=== PATIENT | female | born 1945 | race Caucasian/White ===

== ENCOUNTER → 2021-08-13 12:07 | Outpatient (CLI) | payer OTHER, SELFPAY ==
[2021-08-13 13:34] LABS: COVID19 -Nasal RAPID Negative (Negative)
== END ==
PROVIDERS: Visit Provider Family Medicine Sleep Medicine
DX: Z20.822 Contact with and (suspected) exposure to COVID-19 (principal)
CPT/HCPCS: 87635; C9803

== ENCOUNTER 2021-08-16 10:22 | Day surgery (SDC) | payer OTHER, SELFPAY ==
[2021-08-10 08:23] VITALS: BMI 27.3
[2021-08-16] VITALS (12 sets, daily range): BP systolic 141–180; BP diastolic 67–85; PULSE 72–89; RESP 8–16; TEMP 36.3–36.9; O2SAT 91–98; BMI 27.3
--- NOTE | 2021-08-16 | PATH_ITS ---
[facility] Accession Number: [id number] No. of containers..01 Tissue . 01 Material submitted: . sinus, maxillary - LEFT MAXILLARY SINUS . 02 Diagnosis: Left Maxillary Sinus, Left Endoscopic Maxillary Antrostomy with Left Total Ethmoidectomy: Inflamed portions of sinonasal tissue, some with associated bone and fibrosis, consistent with chronic active sinusitis. No significant increase in eosinophils is identified. Negative for malignancy. MRV 08/21/2021 1641 Local . 02 Electronically signed: . Shaista Villanueva MD, Pathologist NPI- [id number] . 01 Gross description: . LEFT MAXILLARY SINUS: Received in formalin are multiple fragment of blanton soft tissue measuring 0.6 x 0.6 x 0.3 cm in aggregate. Tissue is inked. Specimen is submitted in its entirety in 1 cassette. /ERYN 08/17/2021 1851 Local . 02 Pathologist provided ICD-10: J32.4, J34.89, R09.82 . 02 CPT . 071167 Specimen Comment: A courtesy copy of this report has been sent to [facility] Performed at: 01 [facility] [address], [place], [place] [id number] MD To Crespo MD Phone: [phone] Performed at: [address] [facility] [address] [place], [place] [id number] MD Abeba Brady MD Phone: [phone]
--- NOTE | 2021-08-16 10:36 | PM.PREOP ---
Pre-operative Note COVID-19 COVID-19 status: Negative Result date/Date tested (Pos, Neg/Pending): 08/13/21 Interval Note History & Physical reviewed/Exam performed by Physician: Yes Changes to H&P: No
--- NOTE | 2021-08-16 10:37 | P.OP_ITS ---
Operative Date/Time/Diagnoses Date of procedure: 08/16/21 Time of procedure: 14:30 Pre-op diagnosis: Left chronic maxillary and ethmoid sinusitis, nasal airway obstruction, postnasal drip Post-op diagnosis: same Procedure & Clinicians Procedure: Left endoscopic maxillary antrostomy with tissue removal, left endoscopic total ethmoidectomy Same procedure as scheduled: Yes Indications: 76-year-old female with the above diagnoses incompletely managed with medical therapy presents for the above procedures. Following discussion of the material risks benefits complications and alternatives, she elected to proceed. Medical clearance dated 06/20/2021 was reviewed with echocardiogram showing aortic sclerosis only. Surgeon: Pepito Yadav Click Yes if Unassisted: Yes Anesthesia Type: General Operative Notes Findings: Purulence filling inflamed left maxillary sinus as well as anterior ethmoids, inflamed and irregular tissue sampled in multiple locations including from the edges of the antrostomy and from the anterior ethmoids. Uncinate process irregular with distorted anatomy, ethmoid bulla likely previously obliterated. Cultures taken in addition. Thick bone of the anterior ethmoids, frontal recess approached but not directly surgically opened although frontal recess was likely cannulated. Small pumping arterial vessel cauterized near the posterior inferior rim of the large maxillary antrostomy. Estimated Blood Loss (mL): 150 Procedure in detail: Following identification and confirmation of consent, the patient was brought to the operating room suite and placed in the supine position. General endotracheal anesthesia was administered. She had received preoperative Afrin nasal spray. Following sterile prep and drape, under endoscopic guidance I infiltrated the posterior and anterior superior insertion of the left middle turbinate. 1/2 inch sq cottonoids with 1-1000 epinephrine were placed for s everal minutes within the left middle meatus and removed, used intermittently for oozing throughout the case. The middle turbinate was partially resected with through-cutting forceps to increase patency of the middle meatus with the posterior stump eventually cauterized with suction electrocautery on a setting of 15. Backbiting forceps performed uncinectomy with the distorted residual uncinate process along with the microdebrider. With blunt and sharp dissection I entered the maxillary sinus and large Maxillary antrostomy was created by extending the natural os posteriorly and inferiorly. Abnormal mucosa was resected from within the maxillary sinus with curved forceps and the rad 60 microdebrider. The residual distorted ethmoid bulla was resected with the microdebrider. I penetrated the basal lamella inferiorly and medially to enter the posterior ethmoids and the superior turbinate was identified but not manipulated. Posterior to anterior ethmoid dissection was performed along the skull base, lateral to the middle turbinate and medial to the lamina papyracea, with the J curette and forceps. The frontal recess was not directly approached due to thick, firm bone in that area although some polyps were resected in the area of the frontal recess. Hemostasis with 1: 1000 epinephrine on cotton was performed, scattered focal suction electrocautery. Sponge counts were correct and she was extubated in the operating room and taken to recovery room in stable condition without complication. Complications: none Post-operative Condition: stable Disposition: same day surgery Plan for aftercare: Nasal saline every hour while awake, begin irrigations t.i.d. tomorrow. Tylenol alternating with Advil for pain control, oxycodone for breakthrough pain. Elevate head of bed, no nose blowing, no straining for 2 weeks. Follow- up in 1 week.
--- NOTE | 2021-08-16 10:45 | PM.HP.1 ---
History of Present Illness History of Present Illness Date Patient Seen: 08/16/21 Time Patient Seen: 10:46 Chief complaint: SINUS SURGERY W/LEFT TOTAL ETHMOIDECTOMY Narrative: 76-year-old female last seen in clinic 03/22/2021 presents for left maxillary antrostomy with tissue removal, left total ethmoidectomy due to failure of medical therapy for her chronic rhinosinusitis. Most recent CT 03/06/2021 showed persistent disease. Some persistent nasal obstruction postnasal drip and fatigue. She received medical clearance dated 06/20/2021 including an echocardiogram showing aortic sclerosis only. No recent cough, cold, or fever. Patient History Medical History Post-nasal drip Rhinosinusitis Sinusitis Family & Social History Tobacco & Substance use: Smoking Status Never smoker Substance Use Type does not use Meds Home Medications and Allergies Home Medications Medication Instructions Recorded Confirmed Type esomeprazole magnesium 20 mg 20 mg PO DAILY 08/10/21 08/10/21 History capsule,delayed release (Nexium) loratadine 10 mg tablet 10 mg PO DAILY 08/10/21 08/10/21 History Allergies Allergy/AdvReac Type Severity Reaction Status Date / Time No Known Drug Allergies Allergy Verified 08/10/21 08:39 Review of Systems Review of Systems Narrative: Negative except as listed in the HPI Exam Narrative Exam Narrative: Well-developed well-nourished female in no acute distress. Heart regular rate and rhythm without murmur, lungs clear to auscultation bilaterally Assessment & Plan Assessment & Plan narrative: Assessment: Left maxillary and ethmoid chronic rhinosinusitis, nasal obstruction, postnasal drip, fatigue Plan: Following discussion of the material risks benefits complications and alternatives, the patient elected to proceed with left endoscopic sinus surgery. Time Spent With Patient Critical Care time: I spent a total of [] minutes of critical care time on this patient's care today; this time is exclusive of procedural time.
[2021-08-16] MEDS: LACTATED RINGERS 1,000 ML 84 ML IV ×2 (11:06→14:17)
[2021-08-16] MEDS: OXYMETAZOLINE NASAL SPRAY 15 ML 2 SPRAYS NASAL (11:09)
[2021-08-16] MEDS: ACETAMINOPHEN 325 MG TABLET 975 MG PO (11:52)
--- NOTE | 2021-08-16 13:25 | SUR.OPER ---
Supine on padded OR bed, head on pillow, arms padded and tucked at sides, legs uncrossed, safety belt at thigh, tape over blanket over lower legs .
[2021-08-16] MEDS: EPINEPHrine 1 MG/ML 6 MG TOP (13:32)
--- NOTE | 2021-08-16 13:40 | SUR.OPER ---
BILATERAL HEARING AIDS IN LABELED CUP TO PACU WITH PATIENT
[2021-08-16] MEDS: fentaNYL 100 MCG/2 ML INJ IV (15:06)
[2021-08-16] MEDS: OXYCODONE IR 5 MG TABLET PO (15:34)
--- NOTE | 2021-08-16 17:23 | SUR.PHASEII ---
All nursing care done and charted by Arleth MARQUES supervised by Clarence HULL
== END 2021-08-16 16:45 | disposition home or self-care (01) ==
PROVIDERS: PCP Internal Medicine; Referring Provider Otolaryngology; Visit Provider Otolaryngology
PROC: (CPT 31231; principal; 2021-08-16 12:00)
DX: J32.0 Chronic maxillary sinusitis (principal); J32.2 Chronic ethmoidal sinusitis; J98.8 Other specified respiratory disorders
CPT/HCPCS: 31255; 31267; 87070; 87075; 87077; 87147; 87186; 87205; A9270; J0171; J1100; J1170; J2250; J2405; J2704; J3010

== ENCOUNTER 2023-08-11 07:42 | Day surgery (SDC) | payer OTHER, SELFPAY ==
[2023-08-08 09:02] VITALS: BMI 26.7
[2023-08-11] VITALS (11 sets, daily range): BP systolic 108–155; BP diastolic 54–81; PULSE 59–89; RESP 12–18; TEMP 35.7–37.4; O2SAT 89–98; BMI 26.7
--- NOTE | 2023-08-11 | PATH_ITS ---
[facility] Accession Number: [id number] No. of containers..01 Tissue . 01 Material submitted: . uterus - UTERUS, FALLOPIAN TUBES AND OVARIES . 01 Diagnosis: Uterus, Fallopian Tubes and Ovaries, Laparoscopic Vaginal Hysterectomy with Bilateral Salpingo-oophorectomies (Weight 36 grams): Cervix with patchy parakeratosis and reactive squamous features. Endocervix with no significant histomorphologic abnormality. Endometrium with a benign polyp (23 mm in greatest dimension) with features of cystic atrophy; negative for glandular hyperplasia, cytologic atypia, or malignancy. Myometrium with a benign leiomyoma (9 mm in greatest dimension) and with focal involvement by adenomyosis. Uterine serosa with no significant histomorphologic abnormality. Left fallopian tube, complete cross sections; negative for significant atypia. Left ovary with scattered benign inclusion cysts; negative for significant atypia. Right fallopian tube, complete cross sections; negative for significant atypia. Right ovary with rare, benign inclusion cysts; negative for significant atypia. [facility] 08/15/2023 1542 Local . 01 Comment: As part of routine quality assurance qa lab technician, this case was also reviewed by Dr. Shannon Ramires, who agrees with the interpretation. . 01 Electronically signed: . Shaista Villanueva MD, Pathologist NPI- [id number] . 01 Gross description: . The specimen is received in formalin labeled with the patient's name, , and uterus, fallopian tubes, and ovaries, consists of an intact uterus (36 grams, 6.6 cm from superior to inferior, 4.8 cm from medial to lateral, and 2.5 cm anterior to posterior), attached cervix (3.3 x 2.6 cm), left fallopian tube (6.5 x 0.3 cm), left ovary (2 grams, 2.1 x 0.9 x 0.5 cm), right fallopian tube (4.3 x 0.3 cm), and right ovary (less than 1 gram, 2.0 x 0.8 x 0.4 cm). . The ectocervix is blanton and irregular with a circular os measuring 0.3 cm in diameter. The anterior paracervical margin is inked blue while the posterior paracervical margin is inked black. The serosa is violaceous and smooth with no hemorrhage or adhesion identified. The endocervical canal has blanton cano bone mucosa measuring 1.7 cm in length. The endometrial cavity measures 1.7 cm from cornu to cornu and 4.0 cm in length, with a brown polypoid structure occupying a majority of the endometrial cavity measuring 2.3 x 1.7 x 0.8 cm. The endometrium is blanton, denuded, and averages less than 0.1 cm thick. The polypoid structure has a red to blanton, cystic cut surface with attachment but no grossly visible invasion into the wall. The myometrium is blanton to brown and trabecular, measuring up to 0.9 cm in maximum thickness with a well-circumscribed white whorled nodule located subserosally, measuring 0.9 cm in greatest dimension with no hemorrhage or necrosis identified. . The left fallopian tube has blanton, smooth serosa with no cystic structures identified, and sectioning reveals an unremarkable stellate lumen. The left ovary has a blanton cerebriform surface with a soft brown nodule measuring 0.3 x 0.3 x 0.2 cm. Sectioning reveals an unremarkable cut surface with no lesions identified. . The right fallopian tube has blanton, smooth serosa with a cystic structure measuring 0.5 cm in greatest dimension filled with clear serous fluid. Sectioning reveals an unremarkable stellate lumen. The right fallopian tube has a blanton, cerebriform external surface, and sectioning reveals an unremarkable cut surface with no lesions identified. . Staffing Clerk sections are submitted as follows: A1: Anterior and posterior cervix. A2: Anterior full thickness section. A3-A6: Posterior full thickness sections with entire cystic lesion. A7: White whorled nodule. A8: Left fallopian tube to include one-half of bisected fimbriae and cross sections. A9: Left ovary. A10: Right fallopian tube to include one-half of bisected fimbriae and cross sections. A11: Right ovary. ([id number]) /MRV 08/13/2023 1213 Local . 01 Pathologist provided ICD-10: N81.4, N81.10, N81.6 . 01 CPT . 698393 Specimen Comment: A courtesy copy of this report has been sent to [phone] Performed at: 01 [facility] [address] [place] [address], [place], [place] [id number] MD To Crespo MD Phone: [phone]
[2023-08-11] MEDS: LACTATED RINGERS 1,000 ML 100 ML IV (08:40)
--- NOTE | 2023-08-11 09:43 | P.HPOB_ITS ---
History of Present Illness History of Present Illness Reason for admission: pelvic prolapse Narrative: Zee Gonzalez is a 78 year old female 2 para 1 who presents for an LAVH/BSO/anterior and posterior repair/possible sacral spinous ligament fixation These procedures are being done due to uterine prolapse, cystocele, and rectocele [facility] Medical History (Updated 08/08/23 @ 09:01 by Edna Morales RN) Neuropathy Arthritis Post-nasal drip Sinusitis Rhinosinusitis Surgical History (Updated 08/08/23 @ 09:02 by Edna Morales RN) Hx of shoulder surgery (2001) History of back surgery (2020) History of ethmoidectomy (08/16/21) Social History household members: spouse and none Smoking Status: Never smoker alcohol intake: former Meds Home Medications and Allergies Home Medications Medication Instructions Recorded Confirmed Type No Known Home Medications 08/11/23 08/11/23 History Allergies Allergy/AdvReac Type Severity Reaction Status Date / Time No Known Drug Allergies Allergy Verified 08/11/23 08:24 Exam Vital Signs (past 8 hours): - 08/11/23 08:27 Temperature 97.9 F Pulse Rate 77 Respiratory Rate 16 Blood Pressure 155/81 H Pulse Oximetry 97 Oxygen Delivery Method Room Air Oxygen Delivery Method Room Air Narrative Exam Narrative: HEENT: No thyromegaly, no anterior cervical or supraclavicular lymphadenopathy. Lungs:Clear to auscultation bilaterally, no wheezes. Cardiovascular: Regular rate and rhythm, no murmurs, rubs, or gallops. Abdomen: No scars. No hepatosplenomegaly. No masses palpable. External genitalia: Atrophic Vagina: Pessary in place. Third-degree uterine prolapse, second to third- degree cystocele, second to third-degree rectocele. Cervix: Prolapsed Bimanual exam: 6 Week size prolapsed uterus. Mobile. No adnexal masses or tenderness. Rectal: Second to third-degree rectocele. Extremities: No edema Assessment & Plan Assessment & Plan narrative: Assessment: 78-year-old 2 para 1 with uterine prolapse, cystocele, and rectocele Plan: LAVH/BSO/anterior-posterior repair/possible sacral spinous ligament fixation The risks, benefits, and alternatives to the procedure were explained to the patient. The risks including bleeding, infection, injury to the bowel, bladder, ureters, urethra, or rectum. She understands all of these risks and agrees to proceed. A full par Q was held and consent form was signed. Time Spent With Patient Time with patient: less than 30 minutes
--- NOTE | 2023-08-11 09:50 | PM.PREOP ---
Pre-operative Note Interval Note History & Physical reviewed/Exam performed by Physician: Yes Changes to H&P: No H&P completed within 30 days and has changed as indicated here:: 08/11/23
[2023-08-11] MEDS: CEFAZOLIN 2 GM/100 ML PREMIX 100 ML IV (10:20)
--- NOTE | 2023-08-11 10:46 | SUR.OPER ---
Lithotomy on padded OR bed. Carpio Pad Positioner under torso. Head on pillow, arms padded and tucked at sides. Legs secured in padded yellow fins stirrups.
[2023-08-11] MEDS: BUPIVACAINE 0.25% (PF) 60 ML, EPINEPHrine 0.3 MG INJ (10:52)
--- NOTE | 2023-08-11 12:31 | SUR.OPER ---
Final count performed with Arcadio Drake CST. Unable to enter into [place].
--- NOTE | 2023-08-11 12:48 | SUR.OPER ---
Addendum entered by Ml Leonard R.N. 08/11/23 12:48: Vag packing placed in vagina *BY* Dr. Wylie Original Note: vag packing placed in vagina per Dr. Wylie.
[2023-08-11] MEDS: ONDANSETRON 4 MG/2 ML INJ IV ×2 (13:27→20:36)
--- NOTE | 2023-08-11 13:45 | PC.NURSE ---
Addendum entered by Alejandra Ibarra R.N. 08/11/23 18:30: Patient has about 100cc in her gay catheter. She states that she feels bloated and achy. Will give patient some tylenol. Just left a text with Dr. Wylie to let her know about the urine amount. To see if she wants to do any different orders. Addendum entered by Alejandra Ibarra R.N. 08/11/23 15:40: Patients gay with yellow urine. Patient has some anxiety, she is affraid that if she goes to sleep she will stop breathing or her heart will stop pumping. Encouraged patient to try and get some rest and that we are taking good care of her, she is easily calmed with reassurance. Original Note: Assess- Patient is groggy from anesthesia and slightly confused. She has 3 small allevyn dressings to her lower abdomen that are all cdi with some packing present with betadine and a gay catheter present. Given zofran for nausea and helpful. Patient has NS at 75cc/hr infusing. The urine in her gay bag is clear and patient is lying supine with her SCDs on.
[2023-08-11] MEDS: LACTATED RINGERS 1,000 ML 75 ML IV (14:30)
--- NOTE | 2023-08-11 17:53 | P.OP_ITS ---
Operative Date/Time/Diagnoses Date of procedure: 08/11/23 Time of procedure: 12:30 Pre-op diagnosis: Third-degree uterine prolapse, third-degree cystocele, second- degree rectocele Post-op diagnosis: same Procedure & Clinicians Procedure: Procedures Operation Date: 08/11/23 09:45 Actual Procedure Side Surgeon p Laparoscopic Assisted Vaginal Hysterectomy, bilateral salpingectomy with oophorectomy Rhina Wylie MD s Anterior Repair, sacrospinous ligament fixation Rhina Wylie MD Indications: 78-year-old 2 para 1 with symptomatic uterine prolapse, cystocele, and rectocele. Patient had used a pessary and this had failed. Surgeon: Rhina Wylie Supervisor Rice Milling: Deborah Collins Anesthesia Type: General and Local Operative Notes Findings: 5 week size prolapsed uterus Normal tubes and ovaries Normal liver and gallbladder Normal appendix Third-degree cystocele Second-degree rectocele Second-degree vaginal vault prolapse Closure Type: primary Specimen(s): left tube & ovary, right tube & ovary and uterus Applied: catheter and other (Betadine moistened vaginal packing) Estimated blood loss (mL): 100 Blood products transfused: none Procedure in detail: The patient was taken to the operating room where she was placed in the dorsal supine position. After adequate general endotracheal anesthesia was achieved, she was placed in the dorsal lithotomy position, and prepped and draped in the usual sterile fashion. A bivalve speculum was placed into the vagina, and a single-tooth tenaculum was placed on the anterior lip of the cervix. The cervical os was sequentially dilated until the ZUMI uterine manipulator could pass easily into the endometrial cavity. The single-tooth tenaculum was removed from the anterior lip of the cervix, and the bivalve speculum was removed from the vagina. Attention was then turned to the abdomen where 6 mL of quarter percent Marcaine with epinephrine were injected in the umbilical fold. A 5 mm incision was made. The Verees needle was placed into the peritoneal cavity, and its placement confirmed by aspiration and drop test. The abdominal cavity was insufflated with 3.4 L of CO2. The Veress needle was removed, and a 5 mm trocar was placed without difficulty. Initial inspection of the pelvis revealed the findings noted above. 2 other incisions were made 4 cm lateral to the midline at the level of the umbilicus. These were 5 mm incisions. Two 5 mm trocars were placed under direct visualization. The balloon on the trocar was inflated with 5 cc of air. The right tube and ovary were grasped with an atraumatic g rasper. The infundibulopelvic ligament on the right side was cauterized and cut with plasma kinetic. The round ligament and broad ligament were cauterized and cut. This was continued to the level of the uterine arteries. This was repeated on the patient's left side. The instruments were removed from the abdomen. Attention was then turned to the vagina where the ZUMI uterine manipulator was removed from the uterus. The cervix was grasped with a 4 tooth tenaculum. 10 mL of quarter percent Marcaine with epinephrine were injected circumferentially around the cervix. The cervix was circumscribed. The bladder and rectum were dissected off the lower uterine segment and cervix with an open moistened Ray-Jayjay. The peritoneum was entered sharply with the Metzenbaum scissors anteriorly and a Kiran placed. The peritoneum was entered posteriorly with the Metzenbaum scissors and the long weighted speculum was placed into the posterior cul-de-sac. The uterosacral cardinal ligament complexes were clamped, transected, and suture ligated with 0 Vicryl. These were attached to hemostat. The uterine arteries were clamped, transected, and suture ligated with 0 Vicryl. The uterus was handed off for specimen with the tubes and ovaries. The vaginal cuff was closed with 0 Vicryl with a series of simple interrupted sutures. The tagged sutures were cut. 2 Allis clamps were placed at the apex of the cystocele. 6 mL of quarter percent Marcaine with epinephrine were injected and an incision was made with a #10 blade between the 2 Allis clamps. Wide Allis clamps were placed on the midline of the cystocele approximately 7. The mucosa was undermined using the Metzenbaum scissors and the mucosa incised in the midline moving the wide Allis clamps to the edges of the mucosa. The muc amanda was dissected off the underlying fascia using an open moistened Ray-Jayjay and a #10 blade. The fascia was reapproximated with 0 Vicryl with a series of horizontal mattress sutures. The excess vaginal mucosa was excised. The mucosa was closed using simple interrupted sutures with 2-0 Vicryl including the underlying fascia to close the space. The weighted speculum was removed from the vagina. Allis clamps were placed approximately 4 cm apart just to the left of midline towards the posterior rectocele. 6 mL of quarter percent Marcaine with epinephrine were injected. An incision was made with a #10 blade between the 2 Allis clamps The mucosa was undermined using the Metzenbaum scissors and the mucosa incised in the midline, moving the wide Allis clamps to the mucosal edges. The space around the sacral spinous ligament on the right side was dissected out bluntly. Using the Capio needle with 0 PDS, a stitch was placed approximately 2 cm from the ischial spine. Tugging on the sutures showed good purchase. The other end of the PDS suture was placed on the vaginal cuff with care to avoid coming through the mucosa. The vaginal mucosa was closed with 2-0 Vicryl with simple interrupted sutures. After 3 sutures were placed the PDS suture on the sacral spinous ligament was tied down, with good lengthening of the vagina and support of the vaginal cuff. The remainder of the mucosa was closed with simple interrupted sutures using 2-0 Vicryl. Hemostasis was achieved. Attention was then turned back to the abdomen where it was re- insufflated with carbon dioxide gas. With laparoscopic inspection there was no bleeding in the pelvis. The instruments were removed from the abdomen. The CO2 was allowed to escape. The balloons at the end of the trocars were deflated and the trocars were removed. The incisions on the abdomen were closed with 4-0 Monocryl in a subcuticular fashion. Steri-Strips and Allevyn dressings were placed. A rectal exam was done and there were no sutures palpable in the rectum. A Betadine moistened vaginal packing was placed. The urine was clear. Sponge, lap, and instrument counts were correct x-2. The patient tolerated the procedure well, was taken to PACU in stable condition. Complications: none Post-operative Condition: stable Disposition: PACU Plan for aftercare: To acute care after recovery
[2023-08-11] MEDS: IBUPROFEN 600 MG TABLET PO (18:54)
[2023-08-11] MEDS: ACETAMINOPHEN 325 MG TABLET 650 MG PO (18:55)
[2023-08-12 00:25] VITALS: BP 119/50; PULSE 67; RESP 16; TEMP 37; O2SAT 94
--- NOTE | 2023-08-12 01:01 | PC.NURSE ---
Assumed care from Ne HULL at 0100.
[2023-08-12] MEDS: ACETAMINOPHEN 325 MG TABLET 650 MG PO ×2 (02:31→08:33)
[2023-08-12] MEDS: IBUPROFEN 600 MG TABLET PO ×2 (02:31→08:33)
[2023-08-12] MEDS: LACTATED RINGERS 1,000 ML 75 ML IV (04:08)
[2023-08-12 05:55] VITALS: BP 133/56; PULSE 70; RESP 16; TEMP 36.8; O2SAT 94
[2023-08-12 06:17] LABS: Add Manual Diff / Slide Review NO; Basophils Absolute Auto 100 /uL (0-100); Basophils Percent Auto 0.7 % (0-2); Eosinophils Absolute Auto 0 /uL (0-450); Eosinophils Percent Auto 0.1 % (2-4); Hematocrit 33.9 % (36-46); Hemoglobin 11.5 g/dL (12.0-16.0); Lymphocytes Absolute Auto 2700 /uL (1100-4500); Lymphocytes Percent Auto 18.8 % (25-40); Mean Corpuscular HGB Conc 33.9 % (30-36); Mean Corpuscular Hemoglobin 29.5 PG (26-34); Mean Corpuscular Volume 87.1 fL (80-100); Monocytes Absolute Auto 1100 /uL (0-900); Monocytes Percent Auto 7.6 % (3-14); Neutrophils Absolute Auto 10600 /uL (1500-7000); Neutrophils Percent Auto 72.8 % (50-75); Platelet Count 245 X10^3/uL (150-400); Red Blood Cell Count 3.89 X10^6/uL (4.0-5.2); Red Cell Distribution Width 13.1 % (11.6-14.8); White Blood Cell Count 14.5 X10^3/uL (4.5-11.0)
[2023-08-12 09:18] VITALS: BP 114/44; PULSE 66; RESP 16; TEMP 36.7; O2SAT 95
[2023-08-12] MEDS: BENZOCAINE/MENTHOL 1 LOZ PKT 1 EACH PO (09:49)
--- NOTE | 2023-08-12 11:43 | PC.NURSE ---
Patient voided this morning about 10am 400cc, with bladder scan post void showing less than 29cc. Patient up in room as tolerated, sat in chair. Reports a sore throat improved by lozenger. Eager for discharge to home, waiting for her friend to pick her up.
--- NOTE | 2023-08-12 12:53 | PC.NURSE ---
discharge instructions reviewed with patient and she has no further questions or concerns at this time. IV dc'd intact. Patient escorted out via wheelchair by OFFICE RUNNER to discharge to home with her friend. Patient has follow up appointments scheduled.
--- NOTE | 2023-08-12 13:49 | CM.DANOTE ---
Patient is a 78 yo female who was admitted on 08/11/23 for Uterine Prolapse/LAVH BSO Repair. Pt has [facility] for insurance and her PCP is Carmen Perdue. EMR was reviewed. Per OBGYN, pt tolerated procedure well and gay discontinued this morning and on room air and now medically stable to d/c home today with outpt f/u and no identified barriers to discharge. Per RN, pt has been able to void independently and independent in room and anxiety from last night has stabilized and no concerns noted. SW met bedside with pt and explained role and she confirms she lives in [place] alone but has very supportive local friends. Pt is active and independent at baseline and does not use DME and still drives. Pt denies any recent hx of HH or SNF and her preference is to d/c home today via friend Fidelina POV and no anticipated needs. Pt states she already has two outpt f/u appointments scheduled with her GERMAN INSTRUCTOR. Pt states she just spoke to her best friend Fidelina and updated her on discharge orders and Fidelina will arrive around 1200 to provide transport home. Plan: Patient to d/c home via friend POV and outpt f/u and no further SW needs at this time. KARIE Hill Discharge Planning/Care Management Advanced directive, confirm from FAMILY Start: 08/11/23 14:14 Freq: Q24H Status: Discharge Protocol: Document 08/11/23 19:00 CT (Rec: 08/11/23 23:59 CT [id number]) Advance Directive, confirm on record Time 19:00 Person contacted pt Copy received Yes CM Discharge Assessment Start: 08/12/23 13:48 Freq: Status: Active Protocol: Document 08/12/23 13:48 BF (Rec: 08/12/23 13:49 BF [id number]) Discharge Planning Assessment Assigned Lightning Protection Installer KARIE Glynn Advance Directives? Yes Advance Directives on File No History Provided By Patient,Medical Record Has Patient been admitted in last 30 No days? Prior Living Arrangements House Household Members none Type of transporation used prior to Drives own vehicle admit Independent with ADL's Yes Is patient alert and oriented? Yes Caregiver for Another No DME Already Rented / Owned Cane Barriers to Discharge No Discharge Plan Home Transportation Arrangement Friend Fidelina to transport home today Referrals Initiated None needed Whiteboard Updated in Patient Room with Yes name and ext. # of Lightning Protection Installer Review Status In Process Please Provide Date Initial DC 08/12/23 Assessment Was Performed Next Review Type Continued Stay Review Pre-Anesthesia Assessment Start: 06/11/23 12:27 Freq: Status: Discharge Protocol: Document 08/08/23 09:02 [facility] (Rec: 06/11/23 12:35 [facility] [id number]) Pre-Anesthesia Assessment Patient Information Reviewed Via Chart Review Primary Care Provider Carmen Perdue Specialist Seen Adjuster And Inspector Primary Language Greek Clinical Exercise Specialist Required No Height 170.18 cm Weight 77.564 kg Body Mass Index (BMI) 26.7 Hearing Ability Hearing Impaired,Use of Hearing Aid Hx Anesthesia Reactions No Hx Family Anesthesia Reaction No Hx Malignant Hyperthermia No Hx Blood Transfusions No Hx Blood Transfusion Reaction No Anesthesia Review Requested No 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 No Urinary Catheter Present No Hx Urinary Self Catheterization No Diabetes No Patient No Lactating No Presence of External or Internal Medical No Devices Received a COVID vaccine? Yes Marital Status Single Lives With none Patient Discharge Plan Description Return Home Advance Directives? Yes
--- NOTE | 2023-08-12 17:37 | P.DS_ITS ---
History of Present Illness History of Present Illness Date Patient Seen: 08/12/23 Time Patient Seen: 10:45 Chief complaint: LAVH BSO A&P Repair *OPB* Narrative: Patient is a 78-year-old 2 para 1 status post LAVH/BSO/anterior repair/sacral spinous ligament fixation. She is currently postop day #1. Her pain is well controlled. She has voided without the catheter. Her vaginal packing was removed. She has tolerating a diet. No nausea or vomiting. Discharge Providers Provider Discharge Date: 08/12/23 Primary care physician: Carmen Perdue MD Discharge provider: Rhina Wylie MD Exam Vital Signs (past 8 hours): Oxygen Delivery Method Room Air Oxygen Flow Rate 0 Narrative Exam Narrative: Generally: Patient is sitting up in bed, no acute distress Lungs: Clear to auscultation bilaterally Cardiovascular: Regular rate and rhythm Abdomen: Laparoscopy incisions with bandages in place. Perineum: Slight old blood Vagina: Vaginal packing removed Extremities: No edema, negative Homans Patient voided 400 cc of clear yellow urine. Her postvoid residual by scan was 29 cc. Objective Labs 08/12/23 05:55 Labs: Laboratory Results - last 24 hr 08/12/23 05:55 WBC 14.5 H RBC 3.89 L Hgb 11.5 L Hct 33.9 L MCV 87.1 MCH 29.5 MCHC 33.9 RDW 13.1 Plt Count 245 Neut % (Auto) 72.8 Lymph % (Auto) 18.8 L [place] % (Auto) 7.6 Eos % (Auto) 0.1 L Baso % (Auto) 0.7 Neut # (Auto) 79644 H Lymph # (Auto) 2700 [place] # (Auto) 1100 H Eos # (Auto) 0 Baso # (Auto) 100 PFSH Medical History (Updated 08/08/23 @ 09:01 by Edna Morales RN) Neuropathy Arthritis Post-nasal drip Sinusitis Rhinosinusitis Surgical History (Updated 08/08/23 @ 09:02 by Edna Morales RN) Hx of shoulder surgery (2001) History of back surgery (2020) History of ethmoidectomy (08/16/21) Social History household members: none Smoking Status: Never smoker alcohol intake: former Discharge Assessment & Plan Assessment and Plan Assessment: Postop day # 1 status post LAVH/BSO/anterior repair/6 spinous ligament fixation Plan of Treatment: Discharge to home Follow-up in 2 weeks for telehealth postop visit Patient to call with fever, chills, redness or drainage around the incisions, or bleeding vaginally more than spotting to light Discharge Plan Discharge Plan Patient Disposition: Home Provider Discharge Comment: Call with fever, chills, redness or drainage around the incisions, or bleeding vaginally more than spotting to light Ibuprofen 400-600 mg every 6 hours as needed Tylenol 650 mg every 6 hours as needed Discharge orders & Medications Discharge Orders: Discharge (Order); Ordered 08/12/23 Ordered By: Rhina Wylie Prescriptions: No Action No Known Home Medications Follow up/Referrals: Rhina Wylie MD [Physician] - As previously scheduled (Patient is scheduled for a telehealth postop visit on August 25, 2023) Carmen Perdue MD [Primary Care Provider] - Diet/Activity/Treatments Diet: Regular Activity: No heavy lifting Nothing in the vagina Skin/Wound/Dressing Care Report to your healthcare provider any signs of infection, such as:: chills, fever, increased pain, unusual drainage and unusual redness Visit Report/Discharge Packet Instructions: DI for Cystocele and Rectocele Repair, DI for Hysterectomy, DI for Laparoscopy Stand Alone Forms: Patient Portal/API, Surgery Discharge Discharge Data Primary Care Provider: Carmen Perdue Attending Provider: Rhina Wylie
== END 2023-08-12 12:54 | disposition home or self-care (01) ==
LOC: OR 07:43 → AC 07:43
PROVIDERS: PCP Internal Medicine; Referring Provider Obstetrics & Gynecology; Visit Provider Obstetrics & Gynecology
PROC: 0UT9FZZ Resection of Uterus, Via Natural or Artificial Opening With Percutaneous Endoscopic Assistance (ICD-10-PCS; CPT 58552; principal; 2023-08-11 09:45)
PROC: (CPT 58552; 2023-08-11 09:45)
DX: N81.3 Complete uterovaginal prolapse (principal); N83.292 Other ovarian cyst, left side; N83.291 Other ovarian cyst, right side; D25.9 Leiomyoma of uterus, unspecified; N80.03 Adenomyosis of the uterus; N84.1 Polyp of cervix uteri
CPT/HCPCS: 58552; 57240; 57282; 36415; 85025; J0171; J0690; J1100; J1170; J1885; J2405; J2704

== ENCOUNTER → 2024-02-10 13:49 | Outpatient (CLI) | payer OTHER, SELFPAY ==
[2023-08-11 14:09] VITALS: BMI 26.7
--- NOTE | 2024-02-10 13:55 | DI.RAD.S_ITS ---
PROCEDURE: XR ABDOMEN MIN 2V INDICATIONS: DIARRHEA TECHNIQUE: 2 views of the abdomen were acquired. COMPARISON: None. FINDINGS: Surgical changes and devices: None. Bowel: No pneumoperitoneum. The bowel gas pattern is normal. Soft tissues: No masses; visualized solid organ contours appear normal in size. No suspicious abdominal calcifications. Bones: No suspicious bony abnormalities. Posterior fusion hardware at L5-S1. Multilevel degenerative changes with dextroconvex curvature of the lower lumbar spine. IMPRESSION: Non-obstructive bowel gas pattern. If clinical symptoms persist, consider cross-sectional imaging for further evaluation. Dictated by: Derek Kim M.D. on 02/10/2024 at 16:50 Approved by: Derek Kim M.D. on 02/10/2024 at 16:51
[2024-02-10 14:55] LABS: Add Manual Diff / Slide Review NO; Basophils Absolute Auto 100 /uL (0-100); Basophils Percent Auto 1.1 % (0-2); Eosinophils Absolute Auto 100 /uL (0-450); Eosinophils Percent Auto 1.4 % (2-4); Hematocrit 39.4 % (36-46); Hemoglobin 13.4 g/dL (12.0-16.0); Lymphocytes Absolute Auto 2500 /uL (1100-4500); Lymphocytes Percent Auto 25.6 % (25-40); Mean Corpuscular Hemoglobin 29.4 PG (26-34); Mean Corpuscular Volume 86.5 fL (80-100); Monocytes Absolute Auto 600 /uL (0-900); Monocytes Percent Auto 6.4 % (3-14); Neutrophils Absolute Auto 6300 /uL (1500-7000); Neutrophils Percent Auto 65.5 % (50-75); Platelet Count 389 X10^3/uL (150-400); Red Blood Cell Count 4.55 X10^6/uL (4.0-5.2); Red Cell Distribution Width 14.3 % (11.6-14.8); White Blood Cell Count 9.7 X10^3/uL (4.5-11.0)
[2024-02-10 15:33] LABS: Alanine Aminotransferase 18 IU/L (<35); Albumin 4.5 g/dL (3.5-5.0); Albumin Globulin Ratio 1.6 (1.0-2.8); Alkaline Phosphatase 113 U/L (38-126); Aspartate Aminotransferase 30 IU/L (14-36); BUN Creatinine Ratio 31.2 (6-22); Bilirubin Total 0.6 mg/dL (0.2-1.3); Blood Urea Nitrogen 24 mg/dL (7-17); C-Reactive Protein Quant 0.6 mg/dL (<1.0); Calcium 10.1 mg/dL (8.4-10.2); Carbon Dioxide 27 mmol/L (22-32); Chloride 104 mmol/L (98-107); Estimated Glomerular Filt Rate > 60 mL/min (>60); Globulin 2.8 g/dL (1.7-4.1); Glucose 108 mg/dL (80-110); HEMOLYSIS < 15 (0-50); Potassium 4.7 mmol/L (3.4-5.1); Sodium 139 mmol/L (137-145); Total Protein 7.3 g/dL (6.3-8.2)
[2024-02-10 15:42] LABS: Erythrocyte Sedimentation Rate 15 MM/HR (0-20)
[2024-02-10 16:02] LABS: Thyroid Stimulating Hormone 3.03 uIU/mL (0.47-4.68)
== END ==
PROVIDERS: PCP Internal Medicine; Referring Provider Internal Medicine Gastroenterology; Visit Provider Internal Medicine Gastroenterology
DX: R19.7 Diarrhea, unspecified (principal); Z98.1 Arthrodesis status
CPT/HCPCS: 36415; 74019; 80053; 84443; 85025; 85651; 86140

== ENCOUNTER → 2024-02-14 12:15 | Outpatient (CLI) | payer OTHER, SELFPAY ==
[2023-08-11 14:09] VITALS: BMI 26.7
[2024-02-17 18:37] LABS: Calprotectin, Stool 55 ug/g (0-120)
== END ==
PROVIDERS: PCP Internal Medicine; Referring Provider Internal Medicine Gastroenterology; Visit Provider Internal Medicine Gastroenterology
DX: R19.7 Diarrhea, unspecified (principal)
CPT/HCPCS: 83993; 87045; 87177; 87493